=== PATIENT | female | born 1955 | race Caucasian/White ===

== ENCOUNTER 2017-01-22 19:50 | Inpatient (IN) | payer OTHER ==
[~2017-01-22] VITALS: Ht 167.6 cm; Wt 122.5 kg
--- NOTE | ~2017-01-22 | EKG ---
[address] [place] [address] ELECTROCARDIOGRAM REPORT Name: REJI HOLGUIN Room #: 316-[facility] IN M.R.#: [id number] Admission: 01/22/17 Attend Phys: Eladio Vasquez MD Discharge: 01/25/17 Date of : 59 Report #: [id number] THIS REPORT FOR: //name// [facility] Test Date: 2017-01-24 Test Time: 13:03:28 Pat Name: REJI HOLGUIN Department: Room: 316 Gender: F Infrastructure Solutions Architect: Chanel SAMSON : 1955 Requested By: Eladio Vasquez Order Number: [id number] MD: Kleber Turner Measurements Intervals [place] Rate: 62 P: 50 DE: 165 QRS: 3 QRSD: 115 T: 25 QT: 416 QTc: 423 Interpretive Statements Sinus rhythm Nonspecific intraventricular conduction delay Compared to ECG 01/22/2017 21:08:14 No significant change was found Electronically Signed On 01-26-2017 12:38:43 CDT by Kleber Turner [email or web address] <ELECTRONICALLY SIGNED> By: Kleber Turner MD, [facility] 01/26/17 1238 1303 1303 Kleber Turner MD, [facility] /EPI
--- NOTE | ~2017-01-22 | 2DMMODE ---
[facility] [place] [address] 2 D/M-MODE ECHOCARDIOGRAM Name: REJI HOLGUIN Room #: 316-[facility] IN .R.#: [id number] Admission: 01/22/17 Attend Phys: Rajinder Nieves Discharge: Date of : 59 Date of Service: 01/24/17 1025 Report #: [id number] THIS REPORT FOR: //name// APPROVED REPORT Study performed: 01/24/2017 08:18:16 EXAM: Comprehensive 2D, Doppler, and color-flow Echocardiogram Patient Location: Bedside Room #: [facility] Blood Pressure: 121/56 mmHg HR: 73 bpm Rhythm: NSR Other Information Study Quality: AdequateGood Indications Syncope Hx: HTN, PE 2D Dimensions RVDd: 37.84 mm LVEF(%): 57.07 (>50%) IVSd: 10.88 (7-11mm) LVOT Diam: 20.55 (18-24mm) LVDd: 54.41 mm PWd: 9.95 (7-11mm) Ascending Ao: 30.71 (22-36mm) LVDs: 37.94 (25-40mm) Aortic Root: 35.11 mm Milian's LVEF: 57.07 % Volumes Left Atrial Volume (Systole) Single Plane 4CH: 71.93 mL Single Plane 2CH: 90.74 mL LA ESV Index: 38.00 mL/m2 Aortic Valve AoV Peak Murali.: 1.45 m/s AO Peak Gr.: 8.35 mmHg LVOT Max P.44 mmHg LVOT Max V: 1.27 m/s Mitral Valve E/A Ratio: 1.4 [facility] [address] [place] [address] 2 D/M-MODE ECHOCARDIOGRAM Name: REJI HOLGUIN Room #: 316-[facility] IN [facility]#: [id number] Admission: 01/22/17 Attend Phys: Rajinder Nieves Discharge: Date of : 59 Date of Service: 01/24/17 1025 Report #: [id number] MV Decel. Time: 175.47 ms MV E Max Murali.: 1.14 m/s MV A Murali.: 0.82 m/s MV PHT: 50.89 ms Pulmonary Valve PV Peak Murali.: 1.09 m/s PV Peak Gr.: 4.77 mmHg Pulmonary Vein P Vein S: 75.1 m/s P Vein D: 53.0 m/s Tricuspid Valve TR Peak Murali.: 3.09 m/s RAP Estimate: 5.00 mmHg TR Peak Gr.: 38.30 mmHg RVSP: 43.00 mmHg Left Ventricle The left ventricle is normal size. There is normal LV segmental wall motion. There is normal left ventricular wall thickness. Left ventricular systolic function is normal. LVEF is 55%. Right Ventricle The right ventricle is normal size. Atria Left atrium is dilated. The right atrium size is normal. Aortic Valve The aortic valve is normal in structure. No aortic regurgitation is present. There is no aortic valvular stenosis. Mitral Valve Mitral valve leaflets are mildly thickened. Moderate mitral regurgitation. Tricuspid Valve The tricuspid valve is normal in structure. There is mild tricuspid regurgitation. The right atrial pressure is estimated at 5 mmHg. There is moderate pulmonary hypertension with an estimated PAP of 43mmHg. Pulmonic Valve The pulmonary valve is normal in structure. Trace pulmonic regurgitation. Great [employer]essels [facility] [address] [place] [address] 2 D/M-MODE ECHOCARDIOGRAM Name: REJI HOLGUIN Kira Room #: 316-P ADM IN .R.#: [id number] Admission: 01/22/17 Attend Phys: Rajinder Nieves Discharge: Date of : 59 Date of Service: 01/24/17 1025 Report #: [id number] The aortic root is normal in size. The ascending aorta is normal in size. IVC is normal in size and collapses >50% with inspiration. Pericardium There is no pericardial effusion. <Conclusion> Left ventricular systolic function is normal. LVEF is 55%. Normal LV segmental wall motion. The aortic valve is normal in structure. No aortic regurgitation or stenosis Mitral valve leaflets are mildly thickened. Moderate mitral regurgitation. There is moderate pulmonary hypertension with an estimated PAP of 40 mmHg. There is no pericardial effusion. <ELECTRONICALLY SIGNED> By: Kleber Turner MD, FACC 01/24/17 1025 1025 1025 Kleber Turner MD, FAC /INF
--- NOTE | ~2017-01-22 | EKG ---
[place] [address] [facility] [place] [address] ELECTROCARDIOGRAM REPORT Name: CHELSIEREJI E Room #: 316-P ADM IN M.R.#: [id number] Admission: 01/22/17 Attend Phys: Eladio Vasquez MD Discharge: Date of : 59 Report #: [id number] THIS REPORT FOR: //name// [facility] ED Test Date: 2017-01-22 Test Time: 21:08:14 Pat Name: REJI HOLGUIN Department: Room: [facility] Gender: F Java Developer Analyst: ERASMO : 1955 Requested By: Maggie Alberts Order Number: [id number] MD: Kleber Turner Measurements Intervals [place] Rate: 72 P: 43 KS: 164 QRS: -7 QRSD: 122 T: 8 QT: 391 QTc: 428 Interpretive Statements Sinus rhythm Nonspecific intraventricular conduction delay Nonspecific T abnormalities, anterior leads Baseline wander in lead(s) V1 No previous ECG available for comparison Electronically Signed On 01-23-2017 8:35:14 CDT by Kleber Turner [email or web address] <ELECTRONICALLY SIGNED> By: Kleber Turner MD, [facility] 01/23/17 0835 07 07 Kleber Turner MD, [facility] /EPI
--- NOTE | ~2017-01-22 | EEG ---
[facility] [place] [address] ELECTROENCEPHALOGRAM Name: REJI HOLGUIN Room #: 316-P [facility] IN M.R.#: [id number] Admission: 01/22/17 Attend Phys: Eladio Vasquez MD Discharge: 01/25/17 Date of : 59 Report #: [id number] THIS REPORT FOR: //name// CC: Ami Vasquez DATE OF SERVICE: 01/23/2017 This patient is being evaluated for syncope. EEG was done by placing the electrodes by standard 10-20 system of electrode placement. Both referential and sequential montages were used for recording. Background activity in this patient's EEG is about 11 Hz and 40 microvolts. It is a symmetrical activity. The patient went to sleep that is associated with bilateral slowing and vertex sharp waves. Most of the EEG was obtained when the patient was awake. Photic stimulation is unremarkable. Throughout the record, no active epileptiform activity was noticed. IMPRESSION: This patient's EEG is within normal limits. No active epileptiform activity was noticed. It might be mentioned that EEG can be normal in a patient with seizure disorder. Thank you very much for this referral. <ELECTRONICALLY SIGNED> By: Kalpesh Juarez MD 02/02/172002 1845 24 Kalpesh Juarez MD /nt
[~2017-01-22 19:50] MED LIST: ACETAMINOPHEN325 M1 PO; ARTIFICIAL TEAR15 M1 IO; B-100 COMPLEX1 EAC1; BACLOFEN 10MG T10 M1 PO; CATAPRES-TTS 10.1 MG; CLONAZEPAM 1 MG1 M1 PO; CLONAZEPAM PO; COLACE100 MG PO; COUMADIN 2 MG TA2 M1 PO; COUMADIN 3 MG TA3 MG; COUMADIN 5 MG TA5 M1 PO; DESYREL100 MG PO; DESYREL50 MG; DESYREL50 MG PO; FLEXERIL PO; HCTZ PO; HYDROCHLOROTHIA25 M1; K-DUR 20 MEQ T20 MEQ PO; KLONOPIN PO; LEXAPRO 10 MG T10 MG; LEXAPRO 10 MG T10 MG PO; LIDODERM TP; LOPRESSOR 50 MG50 M1 PO; MEDERMA TP; MOBIC15 MG; MOBIC15 MG PO; MULTIVITAMINS PO; NITROGLYCERIN0.4 MG SL; NORCO 5-325 TA1 EACH PO; NORVASC; ORAZINC220 MG PO; OXYCONTIN20 M1 PO; OXYCONTIN20 MG; PERCOCET 10-321 EACH PO; PERCOCET 10-651 EACH; PHENERGAN 25 MG25 MG PO; PROZAC 20 MG20 M1 PO; PROZAC PO; ROBAXIN 750 MG750 M1 PO; SEE COMMENTS; SYNTHROID75 MCG PO; TESSALON200 MG PO; TIROSINT75 MCG PO; TOPAMAX 100 MG100 MG PO; TOPAMAX50 MG PO; TOPROL XL50 MG PO; VISTARIL 25 MG25 M1 PO; VITAMIN C 250250 MG PO; VITAMIN C120 GM; VITAMIN D400 UNI1; ZPAK PO
[2017-01-22 19:52] VITALS: BP 127/65
[2017-01-22] MEDS ORDERED: PROTONIX40 M1 PO (19:59)
[2017-01-22] MEDS ORDERED: TOPAMAX 100 MG100 MG PO (19:59)
[2017-01-22] MEDS ORDERED: ZANTAC 150MG T150 MG PO (19:59)
[2017-01-22] MEDS ORDERED: PROZAC20 MG PO (20:00)
[2017-01-22] MEDS ORDERED: LEVOTHYROXIN0.075 MG PO (20:00)
[2017-01-22] MEDS ORDERED: CLONAZEPAM2 MG PO (20:00)
[2017-01-22] MEDS ORDERED: OXYCODONE HCL15 MG PO (20:01)
[2017-01-22] MEDS ORDERED: LOPRESSOR25 PO (20:01)
[2017-01-22] MEDS ORDERED: RITALIN LA20 MG PO (20:02)
[2017-01-22] MEDS ORDERED: VITAMIN D50000 UNIT PO (20:02)
[2017-01-22] MEDS ORDERED: FENTANYL PA50 MCG/HR TRANSDERM (20:02)
[2017-01-22] MEDS ORDERED: CENTRUM SILVER1 EAC4 PO (20:03)
[2017-01-22] MEDS ORDERED: VITAMIN C250 M1 PO (20:03)
[2017-01-22] MEDS ORDERED: SINGULAIR 10 MG10 M1 PO (20:04)
[2017-01-22] MEDS ORDERED: SYMBICORT160 MCG/4. INH (20:04)
[2017-01-22 21:16] LABS: ABSOLUTE NEUTROPHILS 3.3 thou/uL (1.4-8.2); EOSINOPHILS 2.6 % (0.0-3.0); HEMATOCRIT 39.7 % (37.0-47.0); HEMOGLOBIN 12.7 gm/dL (12.0-15.0); LYMPHOCYTES 42.2 % (24.0-44.0); MCH 27.7 pg (26.0-34.0); MCHC 32.1 g/dL (28.0-37.0); MCV 86.2 fL (80.0-100.0); MONOCYTES 4.9 % (1.0-8.0); PLATELET COUNT 231 thou/uL (150-400); POLYS 49.3 % (36.0-66.0); RDW 14.5 % (10.5-14.5); WBC 6.8 thou/uL (4.0-11.0)
[2017-01-22 21:26] LABS: ANION GAP 7 mmol/L (7-16); BUN 7 mg/dL (7-18); CALCIUM 8.7 mg/dL (8.5-10.1); CHLORIDE 107 mmol/L (98-107); CO2 27 mmol/L (21-32); CREATININE 0.9 mg/dL (0.6-1.0); GLUCOSE 99 mg/dL (74-106); POTASSIUM 4.1 mmol/L (3.5-5.1); SODIUM 141 mmol/L (136-145)
[2017-01-22 21:31] LABS: MANUAL DIFF NO
[2017-01-22 21:32] LABS: ALBUMIN 3.2 g/dL (3.4-5.0); ALKALINE PHOSPHATASE 105 U/L (46-116); SGOT 23 U/L (15-37); SGPT 18 U/L (30-65); TOTAL BILIRUBIN 0.6 mg/dL (<0.1-1.0); TOTAL PROTEIN 6.9 g/dL (6.4-8.2); TROPONIN-I < 0.04 ng/mL (<0.04-0.07)
[2017-01-22 22:21] LABS: URINE BILIRUBIN NEGATIVE (Negative); URINE BLOOD NEGATIVE (Negative); URINE COLOR YELLOW; URINE GLUCOSE-RANDOM* NEGATIVE (Negative); URINE KETONES NEGATIVE (Negative); URINE NITRITE NEGATIVE (Negative); URINE PROTEIN (DIPSTICK) NEGATIVE (Negative); URINE SPECIFIC GRAVITY 1.015 (1.003-1.035); URINE UROBILINOGEN 0.2 E.U./dl (0.2-1.0)
[2017-01-22 22:29] LABS: AMP/METHAMP Negative (Negative); BARBITURATES Negative (Negative); BENZODIAZEPINES Negative (Negative); COCAINE Negative (Negative); METHADONE Negative (Negative); OPIATES POSITIVE (Negative); PCP Negative (Negative); THC Negative (Negative)
[2017-01-22 23:48] VITALS: BP 121/73
[2017-01-23 00:45] VITALS: BP 137/79
[2017-01-23] MEDS ORDERED: PERMETHRIN60 GM TRANSDERM (04:22)
[2017-01-23] MEDS ORDERED: ELIQUIS5 MG PO (04:26)
[2017-01-23 04:40] VITALS: BP 130/77
[2017-01-23 15:37] LABS: FOLIC ACID 5.9 ng/mL (8.6-58.9)
[2017-01-23 17:33] VITALS: BP 138/74
[2017-01-23 17:34] VITALS: BP 136/73
[2017-01-23 17:35] VITALS: BP 135/85
[2017-01-23 20:00] VITALS: BP 140/78
[2017-01-24 00:06] LABS: GLYCOHEMOGLOBIN (HGB A1C) 5.2 % (4.8-5.6)
[2017-01-24 04:00] VITALS: BP 121/56
[2017-01-24 10:09] VITALS: BP 111/57
[2017-01-24 16:13] VITALS: BP 120/64
[2017-01-24 20:00] VITALS: BP 114/65
[2017-01-25 04:31] VITALS: BP 114/88
[2017-01-25 08:40] VITALS: BP 107/62
[2017-01-25 16:20] VITALS: BP 121/71
[2017-01-25 17:32] VITALS: BP 107/62
== END 2017-01-25 19:36 | disposition home or self-care (01) | DRG 897 ==
LOC: ER 19:50 → 3N 22:52 → EROBS 22:52 → 3N 23:50
PROVIDERS: Internal Medicine; Nurse Practitioner Family; Psychiatry & Neurology Neurology
DX: F11.90 Opioid use, unspecified, uncomplicated (principal); J96.10 Chronic respiratory failure, unspecified whether with hypoxia or hypercapnia; Z68.41 Body mass index [BMI] 40.0-44.9, adult; R55 Syncope and collapse; I10 Essential (primary) hypertension; R73.9 Hyperglycemia, unspecified; F32.9 Major depressive disorder, single episode, unspecified; F43.10 Post-traumatic stress disorder, unspecified; G89.4 Chronic pain syndrome; E53.8 Deficiency of other specified B group vitamins; J45.909 Unspecified asthma, uncomplicated; R23.8 Other skin changes; E66.9 Obesity, unspecified; Z79.899 Other long term (current) drug therapy; Z86.711 Personal history of pulmonary embolism; Z88.7 Allergy status to serum and vaccine; Z88.8 Allergy status to other drugs, medicaments and biological substances; Z88.1 Allergy status to other antibiotic agents; Z79.01 Long term (current) use of anticoagulants
CPT/HCPCS: 10096